=== PATIENT | female | born 1985 | race African-American/Black ===

== ENCOUNTER 2017-04-29 13:05 | Emergency (ER) | payer MEDICAID ==
[~2017-04-29] VITALS: Ht 182.9 cm; Wt 56.8 kg
[~2017-04-29 13:05] MED LIST: ZOFRAN ODT4 MG PO
[2017-04-29 14:31] LABS: URINE BILIRUBIN - DIPSTICK NEGATIVE (NEGATIVE); URINE BLOOD DIPSTICK NEGATIVE (NEGATIVE); URINE COLOR YELLOW; URINE GLUCOSE - DIPSTICK NEGATIVE (NEGATIVE); URINE KETONE 40 mg/dL (NEGATIVE); URINE LEUK ESTERASE NEGATIVE (NEGATIVE); URINE NITRITE - DIPSTICK NEGATIVE (Negative); URINE PH 5.5 (4.5-8.0); URINE PROTEIN - DIPSTICK NEGATIVE (NEG-TRACE); URINE SPECIFIC GRAVITY >=1.030; URINE UROBILINOGEN - DIPSTICK 0.2 E.U./dL (0.2)
[2017-04-29 14:32] LABS: HEMATOCRIT 39.2 % (37.0-47.0); HEMOGLOBIN 13.2 g/dl (12.0-16.0); MEAN CORPUSCULAR HGB 26.9 pG CALC (26.0-32.0); MEAN CORPUSCULAR HGB CONC 33.7 g/L CALC (32.0-36.0); NEUT# 2.02 thou/uL (2.00-7.15); RED BLOOD COUNT 4.9 mill/uL (4.20-5.60); RED CELL DISTRI WIDTH 15.6 % (11.5-15.5)
[2017-04-29 14:40] LABS: URINE CLARITY CLEAR
[2017-04-29 14:53] LABS: ALBUMIN 4.9 g/dL (3.2-5.0); ALKALINE PHOSPHATASE 62 u/l (38-126); AMYLASE 59 u/l (30-110); ANION GAP 18 (6-22 (CALC)); BILIRUBIN, TOTAL 0.6 mg/dL (0.0-1.4); BUN 9 mg/dL (7-17); BUN/CREATININE RATIO 11 (12-20 (CALC)); CARBON DIOXIDE 25 mmol/l (22-30); CHLORIDE 106 mmol/l (95-108); CREATININE 0.8 mg/dL (0.5-1.0); GFR > 60 ML/MIN (>=60 (CALC)); GFR FOR AFR.AMER. > 60 ML/MIN (>=60 (CALC)); LIPASE 39 u/l (23-300); POTASSIUM 4.4 mmol/l (3.5-5.1); SGOT/AST 20 u/l (14-36); SGPT/ALT 19 u/l (9-52); SODIUM 145 mmol/l (137-146); TOTAL PROTEIN 8.4 g/dL (6.3-8.2)
[2017-04-29] MEDS ORDERED: PHENERGAN25 MG/TAB PO (15:28)
[2017-04-29 15:32] VITALS: BP 122/90
== END 2017-04-29 15:58 | disposition home or self-care (01) | DRG 392 ==
LOC: ED 13:05
PROVIDERS: Family Medicine
DX: R10.33 Periumbilical pain (principal); R10.11 Right upper quadrant pain; R11.2 Nausea with vomiting, unspecified; Z72.0 Tobacco use; R14.0 Abdominal distension (gaseous); R19.7 Diarrhea, unspecified

== ENCOUNTER 2017-04-30 08:21 | Observation (INO) | payer MEDICAID ==
[~2017-04-30] VITALS: Ht 165.1 cm; Wt 56.4 kg
[~2017-04-30 08:21] MED LIST changes: +PHENERGAN25 MG/TAB PO
[2017-04-30 09:17] LABS: HEMATOCRIT 35.5 % (37.0-47.0); HEMOGLOBIN 12.3 g/dl (12.0-16.0); IMMATURE GRANULOCYTES 0.4 % (0.0-1.0); MEAN CELL VOLUME 79.2 fL CALC (80.0-100.0); MEAN CORPUSCULAR HGB 27.5 pG CALC (26.0-32.0); MEAN CORPUSCULAR HGB CONC 34.6 g/L CALC (32.0-36.0); NEUT# 6.57 thou/uL (2.00-7.15); RED BLOOD COUNT 4.48 mill/uL (4.20-5.60); RED CELL DISTRI WIDTH 14.9 % (11.5-15.5)
[2017-04-30 09:43] LABS: ALBUMIN 5.2 g/dL (3.2-5.0); ALKALINE PHOSPHATASE 57 u/l (38-126); ANION GAP 24 (6-22 (CALC)); BILIRUBIN, TOTAL 0.7 mg/dL (0.0-1.4); BUN 14 mg/dL (7-17); BUN/CREATININE RATIO 16 (12-20 (CALC)); CARBON DIOXIDE 21 mmol/l (22-30); CHLORIDE 106 mmol/l (95-108); CREATININE 0.9 mg/dL (0.5-1.0); GFR > 60 ML/MIN (>=60 (CALC)); GFR FOR AFR.AMER. > 60 ML/MIN (>=60 (CALC)); LIPASE 27 u/l (23-300); POTASSIUM 4.5 mmol/l (3.5-5.1); SGOT/AST 33 u/l (14-36); SGPT/ALT 26 u/l (9-52); SODIUM 147 mmol/l (137-146); TOTAL PROTEIN 8.5 g/dL (6.3-8.2)
[2017-04-30 10:52] LABS: URINE BILIRUBIN - DIPSTICK NEGATIVE (NEGATIVE); URINE BLOOD DIPSTICK NEGATIVE (NEGATIVE); URINE COLOR YELLOW; URINE GLUCOSE - DIPSTICK NEGATIVE (NEGATIVE); URINE KETONE >=80 mg/dL (NEGATIVE); URINE LEUK ESTERASE NEGATIVE (NEGATIVE); URINE NITRITE - DIPSTICK NEGATIVE (Negative); URINE PH 5.5 (4.5-8.0); URINE PROTEIN - DIPSTICK 100 mg/dL (NEG-TRACE); URINE SPECIFIC GRAVITY >=1.030; URINE UROBILINOGEN - DIPSTICK 0.2 E.U./dL (0.2)
[2017-04-30 10:54] LABS: URINE CLARITY CLOUDY
[2017-04-30 11:00] LABS: COCAINE NEGATIVE (NEGATIVE); METHADONE POSITIVE (NEGATIVE); TETRAHYDROCANNABIONOL POSITIVE (NEGATIVE)
[2017-04-30 11:01] LABS: BARBITURATES NEGATIVE (NEGATIVE); OXCYCODONE NEGATIVE (NEGATIVE); TRICYLIC ANTIDEPRESSANTS NEGATIVE (NEGATIVE)
[2017-04-30 11:04] LABS: URINE BACTERIA FEW hpf; URINE MUCUS MANY hpf (NONE-FEW); URINE RBC 0-2 RBC/hpf (0-5); URINE SQUAMOUS EPITHELIAL CELL MODERATE EPI/hpf (0-FEW); URINE WBC 0-2 WBC/hpf (0-5)
[2017-04-30 13:50] VITALS: BP 149/85
[2017-04-30 16:00] VITALS: BP 162/83
[2017-04-30 20:06] VITALS: BP 138/83
[2017-05-01] VITALS: BP 164/89
[2017-05-01 04:00] VITALS: BP 141/88
[2017-05-01 07:58] VITALS: BP 150/89
[2017-05-01 11:57] VITALS: BP 151/103
[2017-05-01 16:07] VITALS: BP 122/77
[2017-05-01 19:40] VITALS: BP 162/89
[2017-05-02 01:30] VITALS: BP 169/98
[2017-05-02 04:25] VITALS: BP 168/100
[2017-05-02 05:59] LABS: ALBUMIN 4.4 g/dL (3.2-5.0); ALKALINE PHOSPHATASE 47 u/l (38-126); ANION GAP 19 (6-22 (CALC)); BILIRUBIN, TOTAL 0.4 mg/dL (0.0-1.4); BUN 10 mg/dL (7-17); BUN/CREATININE RATIO 13 (12-20 (CALC)); CARBON DIOXIDE 25 mmol/l (22-30); CHLORIDE 106 mmol/l (95-108); CREATININE 0.7 mg/dL (0.5-1.0); GFR > 60 ML/MIN (>=60 (CALC)); GFR FOR AFR.AMER. > 60 ML/MIN (>=60 (CALC)); LIPASE 34 u/l (23-300); POTASSIUM 3.7 mmol/l (3.5-5.1); SGOT/AST 22 u/l (14-36); SGPT/ALT 35 u/l (9-52); SODIUM 146 mmol/l (137-146); TOTAL PROTEIN 7.3 g/dL (6.3-8.2)
[2017-05-02 06:02] LABS: HEMATOCRIT 35.7 % (37.0-47.0); HEMOGLOBIN 12.4 g/dl (12.0-16.0); IMMATURE GRANULOCYTES 0.6 % (0.0-1.0); MEAN CELL VOLUME 79.9 fL CALC (80.0-100.0); MEAN CORPUSCULAR HGB 27.7 pG CALC (26.0-32.0); MEAN CORPUSCULAR HGB CONC 34.7 g/L CALC (32.0-36.0); NEUT# 3.52 thou/uL (2.00-7.15); RED BLOOD COUNT 4.47 mill/uL (4.20-5.60); RED CELL DISTRI WIDTH 14.8 % (11.5-15.5)
[2017-05-02 07:41] VITALS: BP 103/61
[2017-05-02 10:43] VITALS: BP 146/89
[2017-05-02] MEDS ORDERED: PHENERGAN25 MG/TAB PO (13:32)
[2017-05-02] MEDS ORDERED: LEXAPRO10 MG PO (13:33)
== END 2017-05-02 14:45 | disposition home or self-care (01) | DRG 392 ==
LOC: ED 08:21 → ED-I 12:46 → ED 13:00 → MS2 13:01
PROVIDERS: Emergency Medicine; Nurse Practitioner Family; ADMIT Internal Medicine; ATTEND Internal Medicine
DX: R10.9 Unspecified abdominal pain (principal); E87.2 Acidosis; K51.90 Ulcerative colitis, unspecified, without complications; G89.29 Other chronic pain; F41.9 Anxiety disorder, unspecified; R11.2 Nausea with vomiting, unspecified
CPT/HCPCS: G0378; S0164

== ENCOUNTER 2017-05-03 01:09 | Emergency (ER) | payer MEDICAID ==
[~2017-05-03] VITALS: Ht 165.1 cm; Wt 54.4 kg
[~2017-05-03 01:09] MED LIST changes: +LEXAPRO10 MG PO
[2017-05-03 02:02] LABS: URINE BILIRUBIN - DIPSTICK NEGATIVE (NEGATIVE); URINE BLOOD DIPSTICK NEGATIVE (NEGATIVE); URINE COLOR YELLOW; URINE GLUCOSE - DIPSTICK NEGATIVE (NEGATIVE); URINE KETONE 15 mg/dL (NEGATIVE); URINE LEUK ESTERASE NEGATIVE (NEGATIVE); URINE NITRITE - DIPSTICK NEGATIVE (Negative); URINE PROTEIN - DIPSTICK 100 mg/dL (NEG-TRACE); URINE SPECIFIC GRAVITY 1.025; URINE UROBILINOGEN - DIPSTICK 0.2 E.U./dL (0.2)
[2017-05-03 02:03] LABS: HEMATOCRIT 39.6 % (37.0-47.0); HEMOGLOBIN 13.3 g/dl (12.0-16.0); IMMATURE GRANULOCYTES 0.3 % (0.0-1.0); MEAN CELL VOLUME 79.8 fL CALC (80.0-100.0); MEAN CORPUSCULAR HGB 26.8 pG CALC (26.0-32.0); MEAN CORPUSCULAR HGB CONC 33.6 g/L CALC (32.0-36.0); NEUT# 3.77 thou/uL (2.00-7.15); RED BLOOD COUNT 4.96 mill/uL (4.20-5.60)
[2017-05-03 02:10] LABS: URINE CLARITY HAZY
[2017-05-03 02:12] LABS: URINE RBC 0-2 RBC/hpf (0-5); URINE WBC 0-2 WBC/hpf (0-5)
[2017-05-03 02:13] LABS: URINE BACTERIA FEW hpf; URINE MUCUS MODERATE hpf (NONE-FEW); URINE SQUAMOUS EPITHELIAL CELL FEW EPI/hpf (0-FEW); URINE TRANSITIONAL EPI. CELLS FEW hpf
[2017-05-03 02:22] LABS: ALBUMIN 4.9 g/dL (3.2-5.0); ALKALINE PHOSPHATASE 50 u/l (38-126); AMYLASE 45 u/l (30-110); ANION GAP 19 (6-22 (CALC)); BILIRUBIN, TOTAL 0.5 mg/dL (0.0-1.4); BUN 12 mg/dL (7-17); BUN/CREATININE RATIO 13 (12-20 (CALC)); CARBON DIOXIDE 28 mmol/l (22-30); CHLORIDE 104 mmol/l (95-108); CREATININE 0.9 mg/dL (0.5-1.0); GFR > 60 ML/MIN (>=60 (CALC)); GFR FOR AFR.AMER. > 60 ML/MIN (>=60 (CALC)); LIPASE 76 u/l (23-300); POTASSIUM 3.6 mmol/l (3.5-5.1); SGOT/AST 23 u/l (14-36); SGPT/ALT 30 u/l (9-52); SODIUM 147 mmol/l (137-146)
[2017-05-03 03:19] VITALS: BP 108/71
[2017-05-03 04:58] LABS: BARBITURATES NEGATIVE (NEGATIVE); COCAINE NEGATIVE (NEGATIVE); METHADONE NEGATIVE (NEGATIVE); TETRAHYDROCANNABIONOL POSITIVE (NEGATIVE); TRICYLIC ANTIDEPRESSANTS NEGATIVE (NEGATIVE)
[2017-05-03 04:59] LABS: OXCYCODONE NEGATIVE (NEGATIVE)
== END 2017-05-03 03:10 | disposition left against medical advice (07) | DRG 392 ==
LOC: ED 01:09
PROVIDERS: Emergency Medicine
DX: R10.9 Unspecified abdominal pain (principal); R11.0 Nausea; Z87.19 Personal history of other diseases of the digestive system; Z91.19 Patient's noncompliance with other medical treatment and regimen
CPT/HCPCS: S0164

== ENCOUNTER 2018-01-20 18:17 | Emergency (ER) | payer OTHER ==
[~2018-01-20] VITALS: Ht 165.1 cm; Wt 60.0 kg
[2018-01-20] MEDS ORDERED: ROBITUSSIN AC10 ML PO (20:07)
[2018-01-20] MEDS ORDERED: CEPHALEXIN500 M1 PO (20:07)
[2018-01-20 20:40] VITALS: BP 123/73
== END 2018-01-20 20:40 | disposition home or self-care (01) | DRG 153 ==
LOC: ED 18:17
DX: J06.9 Acute upper respiratory infection, unspecified (principal)

== ENCOUNTER 2018-10-13 15:38 | Emergency (ER) | payer OTHER, MEDICAID ==
[~2018-10-13] VITALS: Ht 165.1 cm; Wt 70.0 kg
[~2018-10-13 15:38] MED LIST changes: +CEPHALEXIN500 M1 PO; +ROBITUSSIN AC10 ML PO
[2018-10-13] MEDS ORDERED: VOLTAREN - GENE75 MG PO (17:08)
[2018-10-13 17:10] VITALS: BP 118/66
== END 2018-10-13 17:10 | disposition home or self-care (01) | DRG 563 ==
LOC: ED 15:38
DX: S29.012A Strain of muscle and tendon of back wall of thorax, initial encounter (principal); V43.02XA Car driver injured in collision with other type car in nontraffic accident, initial encounter; Y92.481 Parking lot as the place of occurrence of the external cause

== ENCOUNTER 2020-04-16 15:57 | Emergency (ER) | payer MEDICAID ==
[~2020-04-16] VITALS: Ht 165.1 cm; Wt 59.0 kg
[~2020-04-16 15:57] MED LIST changes: +VOLTAREN - GENE75 MG PO
[2020-04-16 16:58] LABS: HEMATOCRIT 41.3 % (37.0-47.0); HEMOGLOBIN 13.9 g/dl (12.0-16.0); IMMATURE GRANULOCYTES 0.2 % (0.0-5.0); MEAN CELL VOLUME 83.3 fL CALC (80.0-100.0); MEAN CORPUSCULAR HGB CONC 33.7 g/dL CAL (32.0-36.0); NEUT# 7.27 thou/uL (2.00-7.15); RED BLOOD COUNT 4.96 mill/uL (4.20-5.60); RED CELL DISTRI WIDTH 14.4 % (11.5-15.5)
[2020-04-16 17:13] LABS: ALBUMIN 5.8 g/dL (3.2-5.0); ALKALINE PHOSPHATASE 62 u/l (38-126); ANION GAP 18 (6-22 (CALC)); BUN 14 mg/dL (7-17); BUN/CREATININE RATIO 21 (12-20 (CALC)); CARBON DIOXIDE 25 mmol/l (22-30); CHLORIDE 102 mmol/l (95-108); CREATININE 0.7 mg/dL (0.5-1.0); GFR > 60 ML/MIN (>=60 (CALC)); GFR FOR AFR.AMER. > 60 ML/MIN (>=60 (CALC)); LIPASE 38 u/l (23-300); POTASSIUM 4.1 mmol/l (3.5-5.1); SGOT/AST 37 u/l (14-36); SODIUM 140 mmol/l (137-146)
[2020-04-16 17:14] LABS: BILIRUBIN, TOTAL 0.9 mg/dL (0.0-1.4); TOTAL PROTEIN 10.1 g/dL (6.3-8.2)
[2020-04-16 17:45] LABS: URINE BILIRUBIN - DIPSTICK NEGATIVE (NEGATIVE); URINE BLOOD DIPSTICK SMALL (NEGATIVE); URINE COLOR YELLOW; URINE GLUCOSE - DIPSTICK NEGATIVE (NEGATIVE); URINE KETONE 15 mg/dL (NEGATIVE); URINE LEUK ESTERASE NEGATIVE (NEGATIVE); URINE NITRITE - DIPSTICK NEGATIVE (Negative); URINE PROTEIN - DIPSTICK 100 mg/dL (NEG-TRACE); URINE SPECIFIC GRAVITY >=1.030; URINE UROBILINOGEN - DIPSTICK 0.2 E.U./dL (0.2)
[2020-04-16 17:56] LABS: URINE SQUAMOUS EPITHELIAL CELL FEW EPI/hpf (0-FEW)
[2020-04-16] MEDS ORDERED: ONDANSETRON4 MG PO (18:57)
[2020-04-16] MEDS ORDERED: PEPCID20 MG PO (18:57)
[2020-04-16 19:05] VITALS: BP 131/74
== END 2020-04-16 19:05 | disposition home or self-care (01) ==
LOC: ED 15:57
DX: R11.0 Nausea (principal); R10.13 Epigastric pain; R41.9 Unspecified symptoms and signs involving cognitive functions and awareness; K51.90 Ulcerative colitis, unspecified, without complications

== ENCOUNTER 2021-07-09 17:19 | Emergency (ER) | payer MEDICAID ==
[~2021-07-09 17:19] MED LIST changes: +ONDANSETRON4 MG PO; +PEPCID20 MG PO
[2021-07-10] MEDS ORDERED: ZOFRAN4 MG/TAB PO (02:58)
== END 2021-07-09 17:41 | disposition left against medical advice (07) | DRG 951 ==
LOC: ED 17:19 → LWOBS 17:40
DX: Z53.21 Procedure and treatment not carried out due to patient leaving prior to being seen by health care provider (principal)

== ENCOUNTER 2021-07-10 01:16 | Emergency (ER) | payer MEDICAID ==
[~2021-07-10] VITALS: Ht 182.9 cm; Wt 59.1 kg
[2021-07-10 01:21] VITALS: BP 141/104
[2021-07-10 01:50] LABS: HEMATOCRIT 38.3 % (37.0-47.0); HEMOGLOBIN 12.7 g/dl (12.0-16.0); IMMATURE GRANULOCYTES 0.2 % (0.0-5.0); MEAN CORPUSCULAR HGB 29.5 pG CALC (26.0-32.0); MEAN CORPUSCULAR HGB CONC 33.2 g/dL CAL (32.0-36.0); NEUT# 2.46 thou/uL (2.00-7.15); RED BLOOD COUNT 4.3 mill/uL (4.20-5.60)
[2021-07-10 01:51] LABS: MEAN CELL VOLUME 89.1 fL CALC (80.0-100.0)
[2021-07-10 02:40] LABS: ALKALINE PHOSPHATASE 57 u/l (38-126); AMYLASE 83 u/l (30-110); ANION GAP 13 (6-22 (CALC)); BUN 5 mg/dL (7-17); BUN/CREATININE RATIO 7 (12-20 (CALC)); CARBON DIOXIDE 27 mmol/l (22-30); CHLORIDE 108 mmol/l (95-108); CREATININE 0.7 mg/dL (0.5-1.0); GFR FOR AFR.AMER. > 60 ML/MIN (>=60 (CALC)); GFR OTHER RACES > 60 ML/MIN (>=60 (CALC)); LIPASE 76 u/l (23-300); POTASSIUM 3.7 mmol/l (3.5-5.1); SGOT/AST 20 u/l (14-36); SODIUM 145 mmol/l (137-146)
[2021-07-10 02:41] LABS: ALBUMIN 4.3 g/dL (3.2-5.0); BILIRUBIN, TOTAL 0.2 mg/dL (0.0-1.4); TOTAL PROTEIN 7.1 g/dL (6.3-8.2)
[2021-07-10] MEDS ORDERED: ZOFRAN4 MG/TAB PO (02:58)
[2021-07-10 03:20] VITALS: BP 141/104
== END 2021-07-10 03:41 | disposition home or self-care (01) ==
LOC: ED 01:16
PROVIDERS: Family Medicine
DX: R11.2 Nausea with vomiting, unspecified (principal); F17.200 Nicotine dependence, unspecified, uncomplicated; Z20.822 Contact with and (suspected) exposure to COVID-19